=== PATIENT | female | born 1940 | race Caucasian/White ===

== ENCOUNTER 2021-04-18 18:53 | Emergency (ER) | payer MEDICARE, OTHER ==
[~2021-04-18] VITALS: Ht 157.5 cm; Wt 74.8 kg
[~2021-04-18 18:53] MED LIST: ASPI81CH43 GT; ATOR20TA50 PO; CAR3125T PO; CLOP75TA70; LEVO112T4; METO5TAB5 PO; [UNRECOGNIZED DRUG - CODE] PO
[2021-04-18 23:33] LABS: Basophils # (auto) 0.1 10 ^3/uL (0-0.2); Basophils % (auto) 0.5 % (0.0-2.0); Eosinophils # (auto) 0.3 10 ^3/uL (0-0.8); Eosinophils % (auto) 2.3 % (0.0-7.0); Hematocrit 35.8 % (36.0-46.0); Hemoglobin 11.5 g/dL (12.2-16.2); Lymphocytes # (auto) 6.5 10 ^3/uL (0.4-5.4); Lymphocytes % (auto) 46.3 % (10.0-50.0); Mean Corpuscular Hgb Conc. 32.2 g/dL (32.0-36.0); Mean Corpuscular Volume 90.1 fL (80.0-100.0); Monocytes # (auto) 1.4 10 ^3/uL (0-1.3); Monocytes % (auto) 9.9 % (0.0-12.0); Neutrophils # (auto) 5.7 10 ^3/uL (1.6-8.6); Red Blood Cells 3.97 10^6/uL (4.0-5.20); Red Cell Distribution Width 14.5 % (11.8-14.3); White Blood Cell 13.9 10^3/uL (4.4-10.8)
[2021-04-18 23:50] LABS: Calcium 9.4 mg/dL (8.5-10.1)
[2021-04-18 23:52] LABS: BUN/Creatinine Ratio 14.4
[2021-04-18 23:55] LABS: Bilirubin, Total 0.3 mg/dL (0.2-1.0); Total Protein 7.2 g/dL (6.4-8.2)
[2021-04-19] MEDS ORDERED: SODIUM CHLORIDE 0.9% 1,000 ML IV ONE (10:00)
[2021-04-19] MEDS ORDERED: cefTRIAXone 1GM/50ML D5W 50 ML IV ONE (10:00)
[2021-04-19] MEDS ORDERED: SODIUM CHLORIDE 0.9% 500 ML IVB ONE (10:00)
[2021-04-19 10:41] LABS: Magnesium 2.2 mg/dL (1.6-2.6)
[2021-04-19 10:59] LABS: Urine Bacteria MOD /hpf (None Seen); Urine Blood 1+ /uL (Negative); Urine Specific Gravity 1.017 (1.001-1.035); Urine WBC 1579 /hpf (0 - 5)
[2021-04-19 17:23] VITALS: BP 159/78
== END 2021-04-19 17:52 | disposition short-term general hospital (02) ==
LOC: EDBD 18:53 → ER 18:56
DX: R30.0 Dysuria (principal); J44.9 Chronic obstructive pulmonary disease, unspecified; I11.0 Hypertensive heart disease with heart failure; I50.9 Heart failure, unspecified; Z95.1 Presence of aortocoronary bypass graft; Z95.0 Presence of cardiac pacemaker; Z88.0 Allergy status to penicillin; Z88.2 Allergy status to sulfonamides; Z88.6 Allergy status to analgesic agent; Z20.822 Contact with and (suspected) exposure to COVID-19; Z87.891 Personal history of nicotine dependence
CPT/HCPCS: 36415; 51702; 71045; 74176; 80053; 81001; 83605; 83690; 83735; 84443; 85025; 87086; 87088; 87186; 87426; 96361; 96365; 99285; J0696; J7030; J7040

== ENCOUNTER 2021-04-20 18:19 | Emergency (ER) | payer MEDICARE, OTHER ==
[~2021-04-20] VITALS: Ht 165.1 cm; Wt 86.2 kg
[2021-04-20 23:42] LABS: Basophils # (auto) 0.1 10 ^3/uL (0-0.2); Basophils % (auto) 0.5 % (0.0-2.0); Eosinophils # (auto) 0.2 10 ^3/uL (0-0.8); Eosinophils % (auto) 1.6 % (0.0-7.0); Hematocrit 35.9 % (36.0-46.0); Hemoglobin 11.7 g/dL (12.2-16.2); Lymphocytes # (auto) 4.1 10 ^3/uL (0.4-5.4); Lymphocytes % (auto) 33.2 % (10.0-50.0); Mean Corpuscular Hemoglobin 29.1 pg (28.0-32.0); Mean Corpuscular Hgb Conc. 32.6 g/dL (32.0-36.0); Mean Corpuscular Volume 89.2 fL (80.0-100.0); Monocytes # (auto) 1.2 10 ^3/uL (0-1.3); Monocytes % (auto) 9.4 % (0.0-12.0); Neutrophils # (auto) 6.9 10 ^3/uL (1.6-8.6); Neutrophils % (auto) 55.3 % (37.0-80.0); Nucleated Red Blood Cells % 0.2 %; Red Blood Cells 4.03 10^6/uL (4.0-5.20); White Blood Cell 12.5 10^3/uL (4.4-10.8)
[2021-04-20 23:58] LABS: INR 0.98 (0.9-1.15); Partial Thromboplastin Time 28.3 sec (23.6-33.0)
[2021-04-21] VITALS: BP 169/80
[2021-04-21 01:01] LABS: Calcium 9.2 mg/dL (8.5-10.1); Magnesium 2.7 mg/dL (1.6-2.6)
[2021-04-21 01:06] LABS: BUN/Creatinine Ratio 15.2; Potassium 4.4 mmol/L (3.5-5.1)
[2021-04-21 01:07] LABS: Bilirubin, Total 0.3 mg/dL (0.2-1.0); Total Protein 7.2 g/dL (6.4-8.2)
== END 2021-04-21 03:59 | disposition home or self-care (01) ==
LOC: ER 18:19 → EDUNIT# 18:19 → EDBD 18:19 → ER 04-21 03:59
DX: M25.551 Pain in right hip (principal); I11.0 Hypertensive heart disease with heart failure; I50.9 Heart failure, unspecified; J44.9 Chronic obstructive pulmonary disease, unspecified; Z88.0 Allergy status to penicillin; Z88.2 Allergy status to sulfonamides; Z87.891 Personal history of nicotine dependence; Z91.81 History of falling
CPT/HCPCS: 36415; 70450; 71045; 72192; 80053; 83735; 85025; 85610; 85730; 93005